=== PATIENT | male | born 1970 | race Caucasian/White ===

== ENCOUNTER 2017-07-23 21:04 | Emergency (ER) | payer BC, MEDICAID ==
[2017-07-23] MEDS ORDERED: ASPIRIN 81 MG CHEWABLE TABLET PO ONE (21:08)
[2017-07-23] MEDS ORDERED: LORAZEPAM 2 MG/ML VIAL IV ONE (21:09)
--- NOTE | 2017-07-23 21:13 | Emergency Department Record ---
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 He states he feels like he needs to vomit but can't. He is being treated for htn but it has been running higher lately and he has not been feeling well in general. He took a catapres 0.1 just after 6 p.m. because his blood pressure was elevated at that time. He denies steven, PA, PE, DVT. He is a former smoker. He denies DM, chol elevation, or FH of heart problems. - Related Data Home Medications Medication Instructions Recorded Confirmed Last Taken Amlodipine Besylate [Norvasc] 5 mg PO DAILY 07/23/17 07/23/17 Unknown Clonidine HCl [Catapres] 0.1 mg PO ASDIR PRN 07/23/17 07/23/17 Unknown Metoprolol Succinate 25 mg PO DAILY 07/23/17 07/23/17 Unknown Omeprazole [Prilosec] 20 mg PO DAILY 07/23/17 07/23/17 Unknown Allergies Allergy/AdvReac Type Severity Reaction Status Date / Time Benzodiazepines AdvReac Agitation Verified 07/24/17 01:57 Review of Systems Reviewed: No additional complaints except as noted below Constitutional: Reports: As per HPI. Denies: Chills, Fever, Malaise, Night sweats, Weakness, Weight change Eyes: Reports: As per HPI. Denies: Eye discharge, Eye pain, Photophobia, Vision change ENT: Reports: As per HPI. Denies: Congestion, Dental pain, Ear pain, Epistaxis , Hearing loss, Throat pain Respiratory: Reports: As per HPI. Denies: Cough, Dyspnea, Hemoptysis, Stridor, Wheezes Cardiovascular: Reports: As per HPI. Denies: Arrhythmia, Chest pain, Dyspnea on exertion, Edema, Murmurs, Orthopnea, Palpitations, Paroxysmal nocturnal dyspnea, Rheumatic Fever, Syncope Endocrine: Reports: As per HPI. Denies: Fatigue, Heat or cold intolerance, Polydipsia, Polyuria Gastrointestinal: Reports: As per HPI. Denies: Abdominal pain, Constipation, Diarrhea, Hematemesis, Hematochezia, Melena, Nausea, Vomiting Genitourinary: Reports: As per HPI. Denies: Dysuria, Frequency, Hematuria, Incontinence, Retention, Testicular pain, Testicular mass, Urgency Musculoskeletal: Reports: As per HPI. Denies: Arthralgia, Back pain, Gout, Joint swelling, Myalgia, Neck pain Skin: Reports: As per HPI. Denies: Bruising, Change in color, Change in hair/ nails, Lesions, Pruritus, Rash Neurological: Reports: As per HPI. Denies: Abnormal gait, Confusion, Headache, Numbness, Paresthesias, Seizure, Tingling, Tremors, Vertigo, Weakness Psychiatric: Reports: As per HPI. Denies: Anxiety, Auditory hallucinations, Depression, Homicidal thoughts, Suicidal thoughts, Visual hallucinations Hematological/Lymphatic: Reports: As per HPI. Denies: Anemia, Blood Clots, Easy bleeding, Easy bruising, Swollen glands Past Medical History - SOCIAL HISTORY Smoking Status: Former smoker Physical Exam - General General Appearance: Alert, Oriented x3, Cooperative, No acute distress - Head Head exam: Normal inspection - Eye Eye exam: Normal appearance, PERRL Pupils: Normal accommodation - ENT ENT exam: Normal exam, Mucous membranes moist, Normal external ear exam, Normal orophraynx, TM's normal bilaterally Ear exam: Normal external inspection. negative: External canal tenderness Nasal Exam: Normal inspection. negative: Discharge, Sinus tenderness Mouth exam: Normal external inspection, Tongue normal Teeth exam: Normal inspection. negative: Dental caries Throat exam: Normal inspection. negative: Tonsillar erythema, Tonsillar exudate - Neck Neck exam: Normal inspection, Full ROM. negative: Tenderness - Respiratory Respiratory exam: Normal lung sounds bilaterally. negative: Respiratory distress - Cardiovascular Cardiovascular Exam: Regular rate, Normal rhythm, Normal heart sounds - GI/Abdominal GI/Abdominal exam: Soft, Normal bowel sounds. negative: Tenderness - Rectal Rectal exam: Deferred - exam: Deferred - Extremities Extremities exam: Normal inspection, Full ROM, Normal capillary refill. negative: Tenderness - Back Back exam: Reports: Normal inspection, Full ROM. Denies: Muscle spasm, Rash noted, Tenderness - Neurological Neurological exam: Alert, Normal gait, Oriented X3, Reflexes normal - Psychiatric Psychiatric exam: Normal affect, Normal mood - Skin Skin exam: Dry, Intact, Normal color, Warm Course - Reevaluation(s) Reevaluation #1: Patient is feeling improved somewhat: his diaphoresis has subsided, his breathing has improved, and his blood pressure has normalized. His abdomen is distended and he is unable to buckle his trousers by 4-5 inches. Non-tender on palpation of abdomen but distention is moderate. 07/23/17 21:49 07/24/17 02:05 Reevaluation #2: Patient states that he has numerous ectopic beats, around a thousand per day. He cannot tolerate ativan because it makes him agitated, but he can take benadryl without problems. 07/23/17 21:54 Reevaluation #3: Additional history by patient's EMS partner is that he briefly "passed out" while sitting in the ambulance front seat while en route to the [facility]. 07/23/17 22:02 07/24/17 02:06 Reevaluation #4: The patient states he is feeling much better. He gave additional history of taking a testosterone supplement for about the past 10 days. The past few days he has not been feeling well, has episodes of facial flushing, diaphoresis, and overall feeling terrible. His last stress test was 3-4 years ago. He is agreeable to get an out patient stress test through his PCP if the repeat troponin returns normal tonight. He also will no longer take the testosterone supplement. His CTA report was fully discussed and he is aware of the fatty infiltrate of the liver but an otherwise normal report. 07/23/17 22:53 07/23/17 22:56 Reevaluation #5: Four hour troponin has not risen. Will finish cardiac workup as an out patient through his PCP. 07/24/17 02:08 Medical Decision Making - Management Options MDM Management: Additional Work-up Planned (e.g. ADM/Transfer/OP Study) (Out patient cardiac workup through PCP.) - Data Complexity MDM Data: Labs Ordered and/or Reviewed, X-Ray Ordered and/or Reviewed (CTA Chest and abdomen is normal other than fatty liver: No PE, aneurysm, dissection , or acute bowel abnormality.), EKG Ordered and/or Reviewed - Lab Data Result diagrams: 07/23/17 21:10 07/23/17 21:10 - EKG Data -: EKG Interpreted by Me EKG: No Acute Changes (PAC noted. ) - Radiology Data Radiology results: Report reviewed (CTA chest and abdomen: Normal aorta, no PE, no coronary artery calcifications, lungs clear, no bowel blockage, no acute inflamatory process of the abdomen, +Fatty infiltrate of the liver. Per Radiologist.) Disposition Disposition: Discharge Clinical Impression: SOB (shortness of breath), Diaphoresis, Abdominal bloating Disposition: Home, Self-Care Condition: (1) Good Additional Instructions: Follow up cardiac workup as out patient with PCP. Call in a.m. for Thursday for scheduling of this. Discontinue use of testosterone supplements. Quality - Quality Measures Quality Measures: N/A - Blood Pressure Screening Does Patient Have Any of the Following: No, Active Dx of HTN Blood Pressure Classification: Hypertensive Reading Systolic Measurement: 163 Diastolic Measurement: 125 Screening for High Blood Pressure: Patient Exclusion, Hx of HTN [G9744]
[2017-07-23 21:19] LABS: BASO % 0.4 % (0-6); EOS % 1.6 % (0-6); GRAN % 51.7 % (47-80); HEMATOCRIT 50.1 % (42.0-52.0); HEMOGLOBIN 17.2 gm/dl (14.0-18.0); LYMPH % 37.4 % (16-45); MEAN CELL VOLUME 89.5 fl (81-97); MEAN CORPUSCULAR HEMOGLOBIN 30.7 pg (27-33); MEAN CORPUSCULAR HGB CONC 34.3 g/dl (32-36); MONO % 8.9 % (0-9); PLATELET COUNT 194 K/uL (130-400); RED CELL DISTRIBUTION WIDTH 13.2 % (11.5-14.5); WHITE BLOOD COUNT W/O DIFF 8.2 K/uL (4.2-12.2)
[2017-07-23] MEDS: NITROGLYCERIN 0.4MG SL TABLET #25 BTL SL PRN ×3 (21:21→21:31)
[2017-07-23 21:32] LABS: INR 0.93; PARTIAL THROMBOPLASTIN TIME 24.3 SECONDS (24.5-39.1)
[2017-07-23 21:33] LABS: D-DIMER 0.36 mg/L FEU (0-0.59)
[2017-07-23] MEDS ORDERED: ONDANSETRON HCL IV 4 MG/2 ML VIAL IVP ONE (21:48)
[2017-07-23] MEDS ORDERED: DIPHENHYDRAMINE HCL IV 50 MG/ML VIAL IVP ONE (21:48)
[2017-07-23 21:49] LABS: BLOOD UREA NITROGEN 18 mg/dL (9-20); CREATININE 1.4 mg/dL (0.66-1.25); EST GLOMERULAR FILTRATION RATE 58 ml/min; GLUCOSE,RANDOM 103 mg/dL (70-110); TROPONIN I < 0.012 ng/mL (0.00-0.034)
[2017-07-23] MEDS ORDERED: 0.9 % SODIUM CHLORIDE 1,000 ML BAG IV ONE (21:57)
--- NOTE | 2017-07-24 02:17 | Emergency Department Record ---
History of Present Illness - General Chief Complaint: Syncope Stated Complaint: SYNCOPE Time Seen by Provider: 07/23/17 21:07 Source: Patient Mode of Arrival: Ambulatory - History of Present Illness Onset/Timin -: Minutes(s) Injuries Sustained Associated with Event: None Current Symptoms: Abdominal pain, Lightheaded, Nausea, Shortness of breath Treatments Prior to Arrival: None - [place] Coma Scale Eye Response: (4) Open spontaneously Motor Response: (6) Obeys commands Verbal Response: (5) Oriented [place] Total: 15 - Related Data Home Medications Medication Instructions Recorded Confirmed Last Taken Amlodipine Besylate [Norvasc] 5 mg PO DAILY 07/23/17 07/23/17 Unknown Clonidine HCl [Catapres] 0.1 mg PO ASDIR PRN 07/23/17 07/23/17 Unknown Metoprolol Succinate 25 mg PO DAILY 07/23/17 07/23/17 Unknown Omeprazole [Prilosec] 20 mg PO DAILY 07/23/17 07/23/17 Unknown Allergies Allergy/AdvReac Type Severity Reaction Status Date / Time Benzodiazepines AdvReac Agitation Verified 07/24/17 01:57 Travel Screening - Travel/Exposure Within Last 30 Days Have you traveled within the last 30 days?: No Review of Systems Constitutional: Reports: As per HPI. Denies: Chills, Fever, Malaise, Night sweats, Weakness, Weight change Eyes: Reports: As per HPI. Denies: Eye discharge, Eye pain, Photophobia, Vision change ENT: Reports: As per HPI. Denies: Congestion, Dental pain, Ear pain, Epistaxis , Hearing loss, Throat pain Respiratory: Reports: As per HPI. Denies: Cough, Dyspnea, Hemoptysis, Stridor, Wheezes Cardiovascular: Reports: As per HPI. Denies: Arrhythmia, Chest pain, Dyspnea on exertion, Edema, Murmurs, Orthopnea, Palpitations, Paroxysmal nocturnal dyspnea, Rheumatic Fever, Syncope Endocrine: Reports: As per HPI. Denies: Fatigue, Heat or cold intolerance, Polydipsia, Polyuria Gastrointestinal: Reports: As per HPI. Denies: Abdominal pain, Constipation, Diarrhea, Hematemesis, Hematochezia, Melena, Nausea, Vomiting Genitourinary: Reports: As per HPI. Denies: Dysuria, Frequency, Hematuria, Incontinence, Retention, Testicular pain, Testicular mass, Urgency Musculoskeletal: Reports: As per HPI. Denies: Arthralgia, Back pain, Gout, Joint swelling, Myalgia, Neck pain Skin: Reports: As per HPI. Denies: Bruising, Change in color, Change in hair/ nails, Lesions, Pruritus, Rash Neurological: Reports: As per HPI. Denies: Abnormal gait, Confusion, Headache, Numbness, Paresthesias, Seizure, Tingling, Tremors, Vertigo, Weakness Psychiatric: Reports: As per HPI. Denies: Anxiety, Auditory hallucinations, Depression, Homicidal thoughts, Suicidal thoughts, Visual hallucinations Hematological/Lymphatic: Reports: As per HPI. Denies: Anemia, Blood Clots, Easy bleeding, Easy bruising, Swollen glands Past Medical History - SOCIAL HISTORY Smoking Status: Former smoker - RESPIRATORY Hx Respiratory Disorders: No - CARDIOVASCULAR Hx Cardio Disorders: Yes Hx Hypertension: Yes Comment:: frequent PAC's - NEURO Hx Neuro Disorders: No - GI Hx GI Disorders: Yes Hx Reflux: Yes - Hx Genitourinary Disorders: No - ENDOCRINE Hx Endocrine Disorders: No - MUSCULOSKELETAL Hx Musculoskeletal Disorders: No - PSYCH Hx Psych Problems: No - HEMATOLOGY/ONCOLOGY Hx Hematology/Oncology Disorders: No Family Medical History Any Significant Family History?: No Course Vital Signs 07/23/17 07/23/17 07/23/17 21:08 21:10 21:26 Temperature 97.9 F Pulse Rate 82 Pulse Rate [ 80 79 Film Producer ] Respiratory 40 H 32 H 34 H Rate Blood Pressure 163/125 Blood Pressure 160/134 139/97 [Right Arm] Pulse Ox 100 100 97 07/23/17 07/23/17 07/23/17 21:31 21:41 22:11 Temperature Pulse Rate Pulse Rate [ 81 81 66 Film Producer ] Respiratory 24 18 20 Rate Blood Pressure Blood Pressure 123/93 104/82 107/69 [Right Arm] Pulse Ox 98 99 96 Medical Decision Making - Lab Data Result diagrams: 07/23/17 21:10 07/23/17 21:10 Lab Results 07/23/17 07/23/17 07/23/17 Range/Units 21:10 21:10 21:10 WBC 8.2 (4.2-12.2) K/uL RBC 5.60 (4.40-5.70) M/uL Hgb 17.2 (14.0-18.0) gm/dl Hct 50.1 (42.0-52.0) % MCV 89.5 (81-97) fl MCH 30.7 (27-33) pg MCHC 34.3 (32-36) g/dl RDW 13.2 (11.5-14.5) % Plt Count 194 (130-400) K/uL MPV 11.0 H (7.4-10.4) fl Gran % 51.7 (47-80) % Lymphocytes % 37.4 (16-45) % Monocytes % 8.9 (0-9) % Eosinophils % 1.6 (0-6) % Basophils % 0.4 (0-6) % PT 10.0 (9.5-12.1) SECONDS INR 0.93 APTT 24.30 L (24.5-39.1) SECONDS D-Dimer 0.36 (0-0.59) mg/L FEU Sodium 142 (136-145) mmol/L Potassium 4.0 (3.5-5.1) mmol/L Carbon Dioxide 26.0 (22-30) mmol/L BUN 18 (9-20) mg/dL Creatinine 1.4 H (0.66-1.25) mg/dL Estimated GFR 58 ml/min Random Glucose 103 (70-110) mg/dL Calcium 9.6 (8.5-10.1) mg/dL Troponin I < 0.012 (0.00-0.034) ng/mL NT-Pro-B Natriuret Pep 40.20 (<125) pg/mL TSH 3.10 (0.465-4.68) uIU/ml 07/24/17 Range/Units 01:20 WBC (4.2-12.2) K/uL RBC (4.40-5.70) M/uL Hgb (14.0-18.0) gm/dl Hct (42.0-52.0) % MCV (81-97) fl MCH (27-33) pg MCHC (32-36) g/dl RDW (11.5-14.5) % Plt Count (130-400) K/uL MPV (7.4-10.4) fl Gran % (47-80) % Lymphocytes % (16-45) % Monocytes % (0-9) % Eosinophils % (0-6) % Basophils % (0-6) % PT (9.5-12.1) SECONDS INR APTT (24.5-39.1) SECONDS D-Dimer (0-0.59) mg/L FEU Sodium (136-145) mmol/L Potassium (3.5-5.1) mmol/L Carbon Dioxide (22-30) mmol/L BUN (9-20) mg/dL Creatinine (0.66-1.25) mg/dL Estimated GFR ml/min Random Glucose (70-110) mg/dL Calcium (8.5-10.1) mg/dL Troponin I < 0.012 (0.00-0.034) ng/mL NT-Pro-B Natriuret Pep (<125) pg/mL TSH (0.465-4.68) uIU/ml Disposition Clinical Impression: SOB (shortness of breath), Diaphoresis, Abdominal bloating Testosterone adverse reaction Qualifiers: Encounter type: initial encounter Qualified Code(s): T38.7X5A - Adverse effect of androgens and anabolic congeners, initial encounter Disposition: Home, Self-Care Condition: (1) Good Instructions: Acute Abdominal Pain (ED) Additional Instructions: Follow up cardiac workup as out patient with PCP. Call in a.m. for Thursday for scheduling of this. Discontinue use of testosterone supplements. Forms: Patient Portal Access Quality - Quality Measures Quality Measures: N/A - Blood Pressure Screening Does Patient Have Any of the Following: No, Active Dx of HTN Blood Pressure Classification: Hypertensive Reading Systolic Measurement: 163 Diastolic Measurement: 125 Screening for High Blood Pressure: Patient Exclusion, Hx of HTN [G9744]
--- NOTE | 2017-07-24 22:59 | CT ANGIOGRAM REPORT ---
EXAM: CT ANGIOGRAM CHEST/ABDOMEN CTA HISTORY: ACUTE ABDOMINAL DISCOMFORT, MID ABDOMINAL PAIN, DIAPHORESIS. COMPARISON: None. TECHNIQUE: Contiguous axial images from the thoracic inlet to the anterior/ superior iliac crests were obtained after the uneventful intravenous administration of 100 mL of Omnipaque-350. Sagittal and coronal two-dimensional MIP as well 3D/MIP reformatted images were obtained for better anatomic delineation. FINDINGS: The lungs are clear. No pleural effusion. Central airways are patent. The heart is not enlarged and there is no pericardial effusion. No coronary artery calcification. No enlarged lymph nodes in the thorax. Pulmonary arteries are not optimally opacified, although no large PE identified. The thoracic aorta is of normal caliber throughout without significant atherosclerotic change , aneurysm, or dissection. The diameter of the aorta is as follows: Aortic root: 2.5 cm. Coronary sinus: 3.2 cm. Sinotubular junction: 2.9 cm. Mid ascending thoracic aorta: 3 cm. Level of the brachiocephalic artery: 2.9 cm. Level of the subclavian artery: 2.7 cm. Mid descending thoracic aorta: 2.4 cm. Diaphragmatic hiatus: 2.2 cm. Level of the left renal artery: 1.5 cm. Aortic bifurcation: 1.6 cm. Right common iliac artery: 1.0 cm. Left common iliac artery: 1.1 cm. Decreased attenuation throughout the liver consistent with fatty infiltration. The spleen is unremarkable. The kidneys, adrenals, pancreas, and gallbladder are normal. Visualized loops of small and large bowel are of normal caliber with on bowel wall thickening. Normal appendix. Moderate fecal material throughout the colon. The celiac artery, superior mesenteric artery, and inferior mesenteric artery are patent. Solitary renal arteries are patent. No lytic or blastic osseous lesion. IMPRESSION: 1. NO ACUTE INTRATHORACIC PROCESS OR INTRAABDOMINAL PROCESS. THE AORTA IS NORMAL WITHOUT ANEURYSM OR DISSECTION. 2. NO LARGE CENTRAL PE. 3. THE LUNGS ARE CLEAR. 4. FATTY LIVER. JOB NUMBER: [id number] [facility]
== END 2017-07-24 02:30 | disposition home or self-care (01) ==
LOC: ER 21:04
DX: T38.7X5A Adverse effect of androgens and anabolic congeners, initial encounter (principal); R55 Syncope and collapse; R06.02 Shortness of breath; R11.0 Nausea; R14.0 Abdominal distension (gaseous); I10 Essential (primary) hypertension; Z87.891 Personal history of nicotine dependence
CPT/HCPCS: 99284 ×2; 96374; 96375; 85025; 85730; 85610; 84484; 80048; 84443; 85379; 83880; 71275; 74175; 93005; 93010; Q9967; J2405; J1200

== ENCOUNTER 2017-10-15 18:49 | Emergency (ER) | payer SELFPAY ==
[2017-10-15] MEDS ORDERED: ACETAMINOPHEN 1,000 MG/100 ML BTL IVPB ONE (18:53)
[2017-10-15] MEDS ORDERED: **ER** KETAMINE HCL 500MG/10ML VIAL IV ONE (18:53)
[2017-10-15] MEDS ORDERED: ORPHENADRINE CITRATE 60MG/2ML VIAL IM ONE (18:53)
[2017-10-15] MEDS ORDERED: KETOROLAC 30 MG/ML VIAL IVP ONE (18:53)
--- NOTE | 2017-10-15 19:00 | Emergency Department Record ---
History of Present Illness - General Chief Complaint: Back Pain/Injury Stated Complaint: BACL INJURY Time Seen by Provider: 10/15/17 18:53 Source: Patient, EMS Mode of Arrival: EMS Limitations: No limitations - History of Present Illness Initial Comments: 47 yo male presents with severe low back pain. 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 He states he flew up and hit the ceiling then down landing on the bench. He immediately reported low lumbar pain with pain down his legs and burning to his feet. He was able to move the legs at all times. No history of lumbar disease. He denies any LOC. No neck pain. The pain is lower in an area he identifies as L4. MD Complaint: Back injury -: Minutes(s) Place: Work Radiation: Left leg, Right leg Severity: Severe Quality: Aching, Burning, Sharp, Stabbing Consistency: Constant Improves With: None Worsens With: Movement Context: Fall Associated Symptoms: Denies other symptoms, Other (He states it was not numb but burning down the legs) - Related Data Home Medications Medication Instructions Recorded Confirmed Last Taken Atorvastatin Calcium [Lipitor] 10 mg PO DAILY 10/15/17 10/15/17 10/15/17 Allergies Allergy/AdvReac Type Severity Reaction Status Date / Time Benzodiazepines AdvReac Agitation Verified 07/24/17 01:57 Review of Systems Constitutional: Denies: Chills, Fever, Malaise, Weakness Eyes: Denies: Eye discharge ENT: Denies: Congestion Respiratory: Denies: Cough, Dyspnea, Hemoptysis, Stridor, Wheezes Cardiovascular: Denies: Chest pain, Syncope Endocrine: Denies: Fatigue Gastrointestinal: Denies: Abdominal pain, Diarrhea, Nausea, Vomiting Genitourinary: Denies: Dysuria, Frequency, Hematuria Musculoskeletal: Reports: As per HPI, Back pain. Denies: Joint swelling, Myalgia, Neck pain Skin: Denies: Bruising, Change in color, Rash Neurological: Denies: Abnormal gait, Confusion, Headache, Numbness, Tingling, Tremors, Vertigo, Weakness Psychiatric: Denies: Anxiety, Depression Hematological/Lymphatic: Denies: Anemia, Blood Clots, Easy bleeding, Easy bruising, Swollen glands Past Medical History - SOCIAL HISTORY Smoking Status: Former smoker - RESPIRATORY Hx Respiratory Disorders: No - CARDIOVASCULAR Hx Cardio Disorders: Yes Hx Hypertension: Yes Comment:: frequent PAC's - NEURO Hx Neuro Disorders: No - GI Hx GI Disorders: Yes Hx Reflux: Yes - Hx Genitourinary Disorders: No - ENDOCRINE Hx Endocrine Disorders: No - MUSCULOSKELETAL Hx Musculoskeletal Disorders: No - PSYCH Hx Psych Problems: No - HEMATOLOGY/ONCOLOGY Hx Hematology/Oncology Disorders: No Physical Exam - General General Appearance: Alert, Oriented x3, Cooperative, Mild distress (due to pain) Limitations: No limitations - Head Head exam: negative: Atraumatic Head exam detail: Abrasion Image of Face/Head: 1 - abrasion - Eye Eye exam: Normal appearance, PERRL. negative: Conjunctival injection, Periorbital swelling, Periorbital tenderness, Scleral icterus - ENT ENT exam: Normal exam, Mucous membranes moist Ear exam: Normal external inspection Nasal Exam: Normal inspection Mouth exam: Normal external inspection - Neck Neck exam: Normal inspection, Full ROM. negative: Tenderness - Respiratory Respiratory exam: Normal lung sounds bilaterally. negative: Respiratory distress, Rhonchi, Stridor, Wheezes - Cardiovascular Cardiovascular Exam: Regular rate, Normal rhythm, Normal heart sounds Peripheral Pulses: 2+: Radial (R), Radial (L) - GI/Abdominal GI/Abdominal exam: Soft. negative: Tenderness - Rectal Rectal exam: Deferred - exam: Deferred - Extremities Extremities exam: Normal inspection, Normal capillary refill. negative: Joint swelling, Pedal edema, Tenderness Image of Full Body: 1 - area of tenderness and pain - Back Back exam: Reports: Normal inspection, Muscle spasm, Paraspinal tenderness, Tenderness, Vertebral tenderness. Denies: Full ROM - Neurological Neurological exam: Alert, Oriented X3, Other (Sensation intact to feet bilateral , wiggles toes bilaterally, toe extension intact bilaterally, no numbness). negative: Motor sensory deficit - Psychiatric Psychiatric exam: Normal affect, Normal mood - Skin Skin exam: Dry, Intact, Normal color, Warm Course - Reevaluation(s) Reevaluation #1: The patient was seen and examined He reports transient burning sensation down both legs. That has resolved at this time. 10/15/17 19:03 10/15/17 19:06 The patient is in appearant significant pain He requests no Benzodiazepines due to a paradoxical reaction history He initially requests no narcotics due mood swings. 10/15/17 19:38 No acute changes on the CBC 10/15/17 20:02 The patient reports burning pain localized to right lower back to right buttocks Pain is controlled currently if still 10/15/17 20:[address] of the chest, abdomen and pelvis were negative for acute fracture or process. 10/15/17 20:17 Given his burning pain to the feet and legs bilaterally I called [facility] for transfer for MRI I SW Dr Neumann who accepts the patient for transfer Medical Decision Making - Lab Data Result diagrams: 10/15/17 18:55 10/15/17 18:55 Disposition Disposition: Transfer Clinical Impression: Lumbar contusion Qualifiers: Encounter type: initial encounter Qualified Code(s): S30.0XXA - Contusion of lower back and pelvis, initial encounter Sciatica Qualifiers: Laterality: right Qualified Code(s): M54.31 - Sciatica, right side Disposition: Home, Self-Care Transfer To: [facility] Reason For Transfer: Lumbar injury with leg burning Accepting Physician: Dr Joan Neumann Time Discussed w/Accepting Physician: 20:15 Condition: (2) Stable Forms: Patient Portal Access Time of Disposition: 20:15 Quality - Quality Measures Quality Measures: N/A - Blood Pressure Screening Does Patient Have Any of the Following: No Blood Pressure Classification: Hypertensive Reading Systolic Measurement: 174 Diastolic Measurement: 101 Screening for High Blood Pressure: < Pre-Hypertensive BP, F/U Documented > [ [id number]] Pre-Hypertensive Follow-up Interventions: Referral to alternative/primary care provider.
[2017-10-15] MEDS ORDERED: 0.9 % SODIUM CHLORIDE 1,000 ML BAG IV ONE (19:15)
[2017-10-15] MEDS ORDERED: ONDANSETRON 4 MG ODT TABLET SL ONE (19:18)
[2017-10-15 19:22] LABS: BASO % 0.4 % (0-6); EOS % 1.1 % (0-6); GRAN % 55.3 % (47-80); HEMATOCRIT 52.7 % (42.0-52.0); LYMPH % 34.5 % (16-45); MEAN CELL VOLUME 89.8 fl (81-97); MEAN CORPUSCULAR HEMOGLOBIN 30.6 pg (27-33); MEAN CORPUSCULAR HGB CONC 34.2 g/dl (32-36); MEAN PLATELET VOLUME 11.9 fl (7.4-10.4); MONO % 8.7 % (0-9); PLATELET COUNT 204 K/uL (130-400); RED BLOOD COUNT 5.87 M/uL (4.40-5.70); WHITE BLOOD COUNT W/O DIFF 9.2 K/uL (4.2-12.2)
[2017-10-15 19:31] LABS: BLOOD UREA NITROGEN 12 mg/dL (6-20); CREATININE 1.2 mg/dL (0.7-1.2); EST GLOMERULAR FILTRATION RATE > 60 mL/min; INR 0.96; PROTHROMBIN TIME (PATIENT) 10.4 SECONDS (9.5-12.1)
[2017-10-15 19:32] LABS: TOTAL PROTEIN 8.5 g/dL (6.6-8.7)
[2017-10-15 19:34] LABS: GLUCOSE,RANDOM 91 mg/dL (74-109)
[2017-10-15 19:37] LABS: ALB/GLOB RATIO 1.6 (1.1-1.8); ALBUMIN 5.2 g/dL (4.0-5.0); ALKALINE PHOSPHATASE 102 U/L (40-129); ALT/SGPT 79 U/L (<41); AST/SGOT 38 U/L (10.0-50.0)
[2017-10-15] MEDS ORDERED: ONDANSETRON HCL IV 4 MG/2 ML VIAL IVP ONE (19:46)
--- NOTE | 2017-10-16 08:04 | CT SCAN REPORT ---
EXAM: CT OF THE BRAIN WITHOUT CONTRAST HISTORY: HIT HEAD RIDING IN AMBULANCE. TECHNIQUE: CT of the brain without contrast was obtained. Comparison: None. FINDINGS: The globes are intact. The paranasal sinuses and mastoid air cells are unremarkable. No displaced or depressed skull fracture. No intra or extraaxial hemorrhage. CT is limited for evaluation of acute infarct. No CT evidence for large or territorial acute infarct. No mass, mass effect, or midline shift. IMPRESSION: NEGATIVE CT BRAIN. J[facility]BER: [id number] [facility]
--- NOTE | 2017-10-16 08:24 | CT SCAN REPORT ---
EXAM: CT OF THE CERVICAL SPINE HISTORY: INJURY. TECHNIQUE: Axial CT images of the cervical spine were obtained with coronal and sagittal reconstructions. Comparison: None. FINDINGS: Evaluation of spinal canal contents limited due to CT technique, however, the vertebral body height and alignment is preserved. No evidence for fracture/compression deformity or subluxation. Degenerative changes at the C5- C6 and C6-C7 levels. Limited evaluation of the lung apices is unremarkable. IMPRESSION: MINOR DEGENERATIVE DISK DISEASE. NO CT EVIDENCE FOR ACUTE CERVICAL SPINE ABNORMALITY. [facility]: [id number] [facility]
--- NOTE | 2017-10-16 08:28 | CT SCAN REPORT ---
EXAM: CT OF THE ABDOMEN AND PELVIS HISTORY: ABDOMINAL PAIN. TECHNIQUE: CT of the abdomen and pelvis was performed following IV administration of 100 ml of Omnipaque 300 contrast. Lack of oral contrast limits evaluation of bowel. Comparison: CTA from 07/23/17. FINDINGS: Limited evaluation of the lung bases is unremarkable. The osseous structures are grossly intact. Diffuse fatty infiltrative change to the liver. The spleen, adrenal glands, pancreas, kidneys, and bowel are grossly unremarkable. The gallbladder is present. Abundant stool in the colon. No gross evidence for bowel obstruction. Normal appendix. No free air or free fluid. IMPRESSION: FATTY INFILTRATIVE CHANGE TO THE LIVER. NO ACUTE INTRAABDOMINAL/PELVIC PROCESS. JOB NUMBER: [id number] [facility]
--- NOTE | 2017-10-16 08:31 | CT SCAN REPORT ---
EXAM: CT OF THE CHEST HISTORY: CHEST PAIN. TECHNIQUE: CT of the chest was performed following IV administration of 100 ml of Omnipaque 300 contrast. Comparison: 07/23/17 CTA of the chest. FINDINGS: The mediastinal vasculature enhances normally. No mediastinal or hilar adenopathy. Calcified right paratracheal nodes. The heart and pericardium are unremarkable. The osseous structures of the thorax are grossly intact. No pneumothorax. The visualized airways are patent. The lungs are clear. IMPRESSION: NO ACUTE INTRATHORACIC PROCESS. JOB NUMBER: [id number] [facility]
== END 2017-10-15 20:45 | disposition home or self-care (01) ==
LOC: ER 18:49
DX: S30.0XXA Contusion of lower back and pelvis, initial encounter (principal); S00.01XA Abrasion of scalp, initial encounter; M54.31 Sciatica, right side; M79.605 Pain in left leg; M79.604 Pain in right leg; R07.9 Chest pain, unspecified; M54.2 Cervicalgia; W22.8XXA Striking against or struck by other objects, initial encounter; Y93.F9 Activity, other caregiving; Y92.818 Other transport vehicle as the place of occurrence of the external cause; Y99.0 Civilian activity done for income or pay
CPT/HCPCS: 99285 ×2; 96374; 96372; 96375; 85025; 85730; 85610; 80053; 72125; 71260; 70450; 74177; Q9967; J1885; J2405; J2360; J7030